=== PATIENT | female | born 1965 | race Asian ===

== ENCOUNTER 2021-10-11 14:18 | Outpatient (CLI) | payer OTHER | END 2021-10-11 14:19 | disposition home or self-care (01) | LOC: CSHMAMMO 14:18 | PROVIDERS: ATTEND Family Medicine | DX: Z12.31 Encounter for screening mammogram for malignant neoplasm of breast (principal); Z13.820 Encounter for screening for osteoporosis; Z78.0 Asymptomatic menopausal state; M81.0 Age-related osteoporosis without current pathological fracture | CPT/HCPCS: 77063; 77067; 77080 ==

== ENCOUNTER 2022-10-29 10:08 | Outpatient (CLI) | payer OTHER | END 2022-10-29 10:09 | disposition home or self-care (01) | LOC: CSHMAMMO 10:08 | PROVIDERS: ATTEND Family Medicine | DX: Z12.31 Encounter for screening mammogram for malignant neoplasm of breast (principal); M81.0 Age-related osteoporosis without current pathological fracture | CPT/HCPCS: 77063; 77067; 77080 ==

== ENCOUNTER 2024-11-02 14:07 | Outpatient (CLI) | payer BC | END 2024-11-02 14:08 | disposition home or self-care (01) | LOC: CSHMAMMO 14:07 | PROVIDERS: ATTEND Family Medicine | DX: Z12.31 Encounter for screening mammogram for malignant neoplasm of breast (principal); M81.0 Age-related osteoporosis without current pathological fracture; M85.851 Other specified disorders of bone density and structure, right thigh; M85.852 Other specified disorders of bone density and structure, left thigh; N64.89 Other specified disorders of breast | CPT/HCPCS: 77063; 77067; 77080 ==

== ENCOUNTER 2024-11-06 08:03 | Outpatient (CLI) | payer BC | END 2024-11-06 08:04 | disposition home or self-care (01) | LOC: CSHMAMMO 08:03 | PROVIDERS: ATTEND Family Medicine | DX: N64.89 Other specified disorders of breast (principal) | CPT/HCPCS: G0279 ==